=== PATIENT | female | born 1960 | race Caucasian/White ===

== ENCOUNTER 2017-03-12 15:09 | Emergency (ER) | payer SELFPAY ==
[~2017-03-12] VITALS: Ht 165.1 cm; Wt 65.0 kg
[2017-03-12 15:21] VITALS: Ht 165.1 cm; Wt 65.0 kg
[2017-03-12] MEDS ORDERED: ONDANSETRON (ODT) 4 MG TAB ODT STA (15:31)
[2017-03-12] MEDS ORDERED: LORAZEPAM 0.5 MG TAB PO ONE (16:00)
--- NOTE | 2017-03-12 16:10 | ERD ---
ER Documentation Chief Complaint Chief Complaint BIB RA [facility] OF ANXIETY EPISODE. HX OF ANXIETY HPI This is a 56-year-old female with a history of anxiety who is presenting with an anxiety attack. The patient reports significant stressors at work as well as family issues. She states that she was leaving work today and neurologist became too overwhelming. She started to feel palpitations and lightheadedness and shortness of breath. She also developed some nausea. She does not endorse any chest pain. She did report tingling to her fingers. The patient still reports feeling a little anxious, but she states that her symptoms have improved significantly since the ambulance arrived. Her tingling has resolved. The patient denies feeling sick recently. The patient denies fever or chills. The patient has had no headache or vision changes. The patient does not endorse neck or back pain. The patient has had no chest pain. The patient denies vomiting. The patient denies abdominal pain or changes to bowel movements or urination. The patient has had no focal deficits. The patient has had no weakness or numbness to the face or extremities. ROS All systems reviewed and are negative except as per history of present illness. Allergies Allergies: Coded Allergies: No Known Allergies (Verified Allergy, Mild, 01/14/13) PMhx/Soc History of Surgery: No Anesthesia Reaction: No Hx Neurological Disorder: Yes (reported TIA in 2012) Hx Respiratory Disorders: No Hx Cardiac Disorders: No Hx Psychiatric Problems: No Hx Miscellaneous Medical Probl: No Hx Alcohol Use: No Hx Substance Use: No Hx Tobacco Use: No Physical Exam Vitals Vital Signs Date Time Temp Pulse Resp B/P Pulse Ox O2 Delivery O2 Flow Rate FiO2 03/12/17 15:21 97.9 96 18 138/74 100 Physical Exam Const: Mild emotional distress, well-developed, well-nourished Head: Atraumatic Eyes: Normal Conjunctiva. Extraocular movements intact. ENT: Normal External Ears, Nose and Mouth. Neck: Full range of motion. ~ No meningismus. Resp: Clear to auscultation bilaterally Cardio: Regular rate and rhythm, no murmurs Abd: Soft, non tender, non distended. Normal bowel sounds Skin: No petechiae or rashes Back: No midline or flank tenderness Ext: No cyanosis, or edema Neur: Awake and alert, oriented 4. Cranial nerves intact. No facial droop. Normal strength and sensation in all extremities. Coordination with finger to nose normal. Psych: Moderate Anxiety Results 24 hrs Current Medications Medications (Trade) Dose Ordered Sig/Bi Route PRN Reason Start Time Stop Time Status Last Admin Dose Admin Ondansetron HCl (Zofran Odt) 4 mg ONCE STAT ODT 03/12/17 15:31 03/12/17 15:32 DC Lorazepam (Ativan) 0.5 mg ONCE ONCE PO 03/12/17 16:00 03/12/17 16:01 Procedures/[facility] MDM The patient's presentation warrants further investigation. The patient had a similar episode in 2012 that was initially reported as concerning for TIA. However, the patient had a workup and it was negative. There is concern that this could have been related to an anxiety attack according to the patient. The patient's symptoms are far less severe today. They resolved as soon as the patient was able to calm down. She is a completely normal neurologic exam, and I have low suspicion for a neurologic etiology. We will obtain an EKG to evaluate the heart. We will provide the patient with a low-dose Ativan for her anxious feelings and p.o. Zofran for nausea. EKG EKG read by me: Rate/Rhythm: Regular rate and rhythm at a rate of 86 Intervals: Normal [place]: Normal Impression: No evidence of ischemia or arrhythmia TREATMENT/DISPOSITION Symptoms resolved after receiving the medication. The patient reports significant stress in her life, so anxiety is a possibility. The patient needs to follow-up with her primary doctor regarding these episodes. The patient has a completely normal neurologic exam, and I have low suspicion for a neurologic etiology. The patient's EKG is completely reassuring. She did not have any chest pain, and I have low suspicion for cardiac pathology as well. At this time, I feel that the patient stable for discharge. He will need follow -up with his primary care physician in 2-3 days. He will be given strict precautions with which to return to the emergency department. The patient's blood pressure was elevated at greater than 120/80 while in the emergency department. The patient was otherwise stable with no evidence of hypertensive urgency or emergency. The patient will require reevaluation of his blood pressure in 2-3 days, but this may be completed by a primary care physician as an outpatient. He does not require admission for blood pressure control. Departure Diagnosis: Primary Impression: Anxiety Additional Impressions: Palpitations Nausea Condition: Stable MICKEY HANCOCK MD Mar 12, 2017 16:05
== END 2017-03-12 17:55 | disposition home or self-care (01) ==
LOC: E/R 15:09
DX: F41.9 Anxiety disorder, unspecified (principal); R00.2 Palpitations; R11.0 Nausea
CPT/HCPCS: 93005